=== PATIENT | female | born 1995 | race Caucasian/White ===

== ENCOUNTER 2016-10-29 22:55 | Emergency (ER) | payer OTHER | END 2016-10-30 01:06 | disposition home or self-care (01) | LOC: FER 22:55 | DX: L02.415 Cutaneous abscess of right lower limb (principal); L03.115 Cellulitis of right lower limb; Z90.89 Acquired absence of other organs; F17.210 Nicotine dependence, cigarettes, uncomplicated | CPT/HCPCS: 87070; 87205; 90471; 90715 ==